=== PATIENT | male | born 1965 | race Caucasian/White ===

== ENCOUNTER 2017-12-04 14:45 | Emergency (ER) | payer OTHER ==
[~2017-12-04 14:45] MED LIST: ALBU8.5H12 IH; NAPR220C12 PO
--- NOTE | 2017-12-04 14:51 | ER Report ---
History and Physical Time Seen By MD: 14:50 Hx. of Stated Complaint: laceration left index finger HPI/ROS cut left index finer with gringer, superficial lac 1/2 inch left index finger Allergies: Coded Allergies: No Known Drug Allergies (Unverified , 04/09/13) Home Meds Active Scripts Ibuprofen (IBUPROFEN) 800 Mg Tablet, 1 TAB PO Q8H, #30 TAB Prov:SALBADOR ESCOBAR PREFLIGHT INSPECTOR-C 12/04/17 Discontinued Reported Medications Albuterol Sul Hfa 90 Mcg 8 Gm (VENTOLIN HFA 90 MCG 8 GM) 8.5 Gm Hfa.aer.ad, 1 - 2 PUFF IH PRN 04/09/13 Naproxen Sodium (ALEVE) 220 Mg Capsule, 220 MG PO PRN 04/09/13 Past Medical/Surgical History Asthma arthritis Hx Smoking: No Exposure to Second Hand Smoke?: No Hx Substance Use Disorder: No Hx Alcohol Use: No Constitutional Vital Sign - Last 24 Hours 12/04/17 14:58 Pulse 62 Resp 20 B/P (MAP) 144/79 O2 Delivery Room Air Physical Exam 52-year-old male alert and oriented no acute distress heart rate regular no murmurs rubs and gallops lungs clear to auscultation left hand has a half inch laceration his left index finger is superficial has mild amount of bleeding no tendon involvement CMS is intact distally Medical Decision Making ED Course/Re-evaluation ED Course 1/2 inch laceration 3 sutures were placed dry sterile dressing patient will follow-up in a week with his primary care providers to have stitches removed refuses something for pain in the emergency room dressing and splint placed by nursing staff Re-evaluation Tolerated procedure well follow-up with primary care in 1 week Procedure ed laceration cleaned with betadyne digital block 3 cc 1% lidocaine, good anesthesia, irrigated 50 cc ns, cleaned 3 sutred 4-0 nylon, dry sterile dressing , tolerated well Decision to Disposition Date: Dec 04, 2017 Decision to Disposition Time: 15:10 Depart Departure Latest Vital Signs Vital Signs Date Time Temp Pulse Resp B/P (MAP) Pulse Ox O2 Delivery O2 Flow Rate FiO2 12/04/17 14:58 62 20 144/79 Room Air Impression: Primary Impression: Laceration of finger Condition: Improved Disposition: HOME OR SELF-CARE Referrals: ARABELLA AGUILAR MD (PCP) 1 Week New Scripts Ibuprofen (IBUPROFEN) 800 Mg Tablet 1 TAB PO Q8H, #30 TAB Prov: SALBADRO ESCOBAR 12/04/17 Patient Instructions: Finger Laceration (ED) Additional Instructions: Leave dressing on today, clean daily with mild soap and water, return for any increasing redness purulent drainage, see your primary care physician in one week for stitches removal SALBADOR ESCOBAR Dec 04, 2017 14:51
[2017-12-04 14:58] VITALS: BP 144/79
[2017-12-04] MEDS ORDERED: DIPHTH/TETANUS/ACEL. PERTUSSIS IM ONLY ONE (15:05)
[2017-12-04] MEDS ORDERED: IBUP800T37 PO (15:07)
== END 2017-12-05 15:05 | disposition home or self-care (01) ==
LOC: ER 14:55
DX: S61.211A Laceration without foreign body of left index finger without damage to nail, initial encounter (principal)
CPT/HCPCS: 90471; 90715; 99283

== ENCOUNTER 2018-05-14 16:15 | Emergency (ER) | payer OTHER ==
[~2018-05-14 16:15] MED LIST changes: +IBUP800T37 PO
[2018-05-14 16:29] VITALS: BP 137/87
--- NOTE | 2018-05-14 16:32 | ER Report ---
History and Physical Time Seen By MD: 16:32 Hx. of Stated Complaint: CUT INDEX FINGER WITH A RAZOR BLADE HPI/ROS CHIEF COMPLAINT: Finger laceration HISTORY OF PRESENT ILLNESS: 52-year-old male patient presents to emergency room with complaint of a finger laceration. Patient states that he was at work today. He was cutting drywall with a razor blade. He states that as his pointed out that hit the edge of his Square causing it to bounce up and cut his left index finger. Patient states that he had significant amounts of blood. He did apply pressure to it. He did come in to the emergency room for evaluation. He states the last tetanus shot was approximately 1-2 years ago when he cut himself at work again. He denies any numbness tingling. He states he is able to move his finger without any difficulties. Allergies: Coded Allergies: No Known Drug Allergies (Unverified , 05/14/18) Home Meds Active Scripts Cephalexin 500 Mg Tab (KEFLEX 500 MG TAB) 500 Mg Tablet, 500 MG PO Q6H, #20 TAB Prov:MALDONADO ANGEL BUSINESS ADMINISTRATION PROFESSOR 05/14/18 Ibuprofen (IBUPROFEN) 800 Mg Tablet, 1 TAB PO Q8H, #30 TAB Prov:SALBADOR ESCOBAR 12/04/17 Past Medical/Surgical History Patient has a past medical history of migraines, asthma, bloody stools, heartburn, neck problems. Patient has surgical history of neck fusion, hernia repaired, carpal tunnel release, shoulder surgery. Patient has a family medical history of cancer. Reviewed Nurses Notes: Yes Hx Smoking: No Exposure to Second Hand Smoke?: No Hx Substance Use Disorder: No Hx Alcohol Use: No Constitutional Vital Sign - Last 24 Hours 05/14/18 16:29 Temp 97.7 Pulse 67 Resp 14 B/P (MAP) 137/87 Pulse Ox 94 O2 Delivery Room Air Physical Exam General Appearance: The patient is alert, has no immediate need for airway protection and no current signs of toxicity. Respiratory: Chest is non tender, lungs are clear to auscultation. Cardiac: regular rate and rhythm Musculoskeletal: Extremities have full range of motion and are non tender. Skin: No rashes or lesions. Patient does have a laceration to the left index finger, it does cut through the lateral aspect of the fingernail. Patient has full flexion and extension of the finger. No numbness tingling of the finger. DIFFERENTIAL DIAGNOSIS: After history and physical exam differential diagnosis was considered for laceration. Medical Decision Making ED Course/Re-evaluation ED Course Patient was admitted to exam room, history of physical were obtained. Differential diagnoses were considered. On examination lungs are clear, heart regular, patient does have a for similar laceration to the left index finger. It does go through the fingernail. Patient has good strength with flexion and extension. The finger was anesthetized, cleaned and repaired as described below. We will go ahead and discharge patient home at this time. He is follow- up with his primary care provider in 7-10 days could sutures removed. He is to limit his activity by pain. He is to return to the emergency room with any signs of infection. Patient verbalized understanding and agreement with plan. Procedure: Laceration repair. Verbal consent was obtained from the patient. The 4 cm laceration on the left index finger was anesthetized in the usual fashion. The wound was scrubbed, draped and explored to its base with a gloved finger. There were no deep structures involved. No tendon injury was identified. The wound was repaired with 13 simple interrupted sutures using 4-0 Prolene material. The wound repair was simple. The procedure was performed by myself. Decision to Disposition Date: May 14, 2018 Decision to Disposition Time: 17:24 Depart Departure Latest Vital Signs Vital Signs Date Time Temp Pulse Resp B/P (MAP) Pulse Ox O2 Delivery O2 Flow Rate FiO2 05/14/18 16:29 97.7 67 14 137/87 94 Room Air Impression: Primary Impression: Laceration of finger Condition: Improved Disposition: Admitted from ER Referrals: ARABELLA AGUILAR MD (PCP) New Scripts Cephalexin 500 Mg Tab (KEFLEX 500 MG TAB) 500 Mg Tablet 500 MG PO Q6H, #20 TAB Prov: MALDONADO ANGEL GALA 05/14/18 Patient Instructions: Finger Laceration (ED) Additional Instructions: Keep wound dry for 48 hours. Follow up with your primary care provider in the next 7-10 days to have sutures removed. Monitor for signs of infection; redness, swelling, heat, discharge, increasing pain or red streaking. Take Tylenol or Ibuprofen as needed for pain. Return to the ER with any concerns. You may change dressing as needed. Problem Qualifiers Primary Impression: Laceration of finger Encounter type: initial encounter Finger: index finger Damage to nail status: with damage Foreign body presence: without foreign body Laterality: left Qualified Codes: S61.311A - Laceration without foreign body of left index finger with damage to nail, initial encounter MALDONADO ANGEL May 14, 2018 16:32
[2018-05-14] MEDS ORDERED: CEPH500T7 PO (17:24)
== END 2018-05-14 17:32 | disposition other institution (70) ==
LOC: ER 16:44
DX: S61.311A Laceration without foreign body of left index finger with damage to nail, initial encounter (principal)
CPT/HCPCS: 99282

== ENCOUNTER → 2019-02-28 | Outpatient (CLI) | payer OTHER ==
[~2019-02-28] MED LIST changes: +CEPH500T7 PO
== END ==
LOC: RESP 02:15
PROVIDERS: ATTEND Family Medicine
DX: R06.2 Wheezing (principal)
CPT/HCPCS: 94060; 94726; 94729